=== PATIENT | female | born 1960 | race Caucasian/White ===

== ENCOUNTER 2023-11-07 10:58 | Emergency (ER) | payer OTHER, SELFPAY ==
[2023-11-07 11:02] VITALS: BP 139/84; BMI 37.1
--- NOTE | 2023-11-07 12:41 | ED.GENMED ---
History of Present Illness
General
Chief Complaint: Swelling
Time Seen by Provider: 11/07/23 11:52
Travel History
Have you had any contact with someone who has COVID-19?: No
Do you have any symptoms of coronavirus? Fever > 100 degrees, chills, cough, shortness of breath, sore throat, loss of taste or smell, muscle aches, or headache?: No
History of Present Illness
History of Present Illness:
63-year-old female presents to the emergency department for evaluation of left popliteal and upper calf pain beginning yesterday and worsening today. She was concerned that her left calf looks swollen. Pain is worse when ambulating, no pain at
rest. No recent prolonged immobilization or travel. Denies any fevers. Denies any chest pain or shortness of breath
Past History
Past History
ED Past Medical History: HTN and NIDDM
ED Past Surgical History: None
Patient has exhibited threatening behavior?: No
PSI?: No
Social History
Tobacco: Non-smoker
Alcohol: None
Drug: None
Personal:
Living: with family
Review of Systems
Review of Systems
Allergies reviewed?: Yes
All Other Systems: ROS reviewed and negative except as documented in HPI and ROS
Phy Exam
Physical Exam
Physical Exam:
GEN: Well appearing, NAD, WDWN
HEENT: Oral mucosa moist, no scleral icterus
Cardiac: Regular rate
Lung: No respiratory distress, no tachypnea
MSK: No gross deformity or injuries. No reproduced tenderness to the L knee. No gross deformity, normal L knee ROM. No crepitus. Calf mildly edematous proximally
Skin: Good color, no pallor or jaundice, no rashes
Neuro: AO x3, moves all extremities freely
Psych: Calm, cooperative
Scores
Heart Failure Risk
Heart Failure Risk Score: Not Applicable
Course
Orders/Labs/Results
Orders:
Orders
11/07/23 11:00
Periph Venous Lwr Ext Left US [US Periph Venous LOWER Ext LT] Urgent
Comment:
Reason For Exam: pain/swelling
11/07/23 12:40
CR Knee - Left 4 Or More View* Urgent
Comment:
Reason For Exam: knee pain
Vital Signs
Initial and Last Documented VS:
Initial Vital Signs
Temp Pulse Resp BP Pulse Ox
98 F 97 20 139/84 99
11/07/23 11:02 11/07/23 11:02 11/07/23 11:02 11/07/23 11:02 11/07/23 11:02
Last Documented Vital Signs
Temp Pulse Resp BP Pulse Ox
98 F 97 20 139/84 99
11/07/23 11:02 11/07/23 11:02 11/07/23 11:02 11/07/23 11:02 11/07/23 11:02
MDM/Problems Addressed
MDM/Problems Addressed:
Devious the study is not clearly positive for DVT however given the abnormality in the deep femoral vein will have the patient take full dose aspirin for 2 weeks and follow-up w/ PCP for reimaging.
*Critical Care Note
Total Time (30-74mins, 75-104mins- exclusive of procedures): Not Applicable
ED Attending Note
-
Portions of this chart may have been created with voice recognition software.� Occasional wrong word or��sound alike� substitutions may have occurred due to the inherent limitations of voice recognition software.
Discharge Plan
Departure
Patient Disposition: Home (Routine Discharge)
Date of Disposition: 11/07/23
Time of Disposition: 14:25
Patient with high blood pressure during this ER visit?: No
Discharge Problem:
Popliteal pain
Instructions: Osteoarthritis (DC)
Prescriptions:
No Action
ondansetron 4 mg tablet,disintegrating
4 mg PO Q8H PRN (Reason: nausea and vomiting) Qty: 10 0RF
acetaminophen [Tylenol] 325 mg Tablet
650 mg PO Q4H PRN (Reason: neck pain)
atorvastatin 10 mg Tablet
10 mg PO DAILY
aspirin 81 mg Tablet,Delayed Release (Dr/Ec)
81 mg PO DAILY
tramadol 50 mg Tablet
50 mg PO TID PRN (Reason: neck pain)
trazodone 150 mg Tablet
150 mg PO HS
glimepiride 4 mg Tablet
4 mg PO DAILY
valsartan 320 mg Tablet
320 mg PO DAILY
ibuprofen 600 mg Tablet
600 mg PO Q6H PRN (Reason: neck pain)
prednisone 10 mg Tablet
See Rx Instructions .ROUTE .COMPLEX Qty: 60 0RF
Rx Instructions:
50 mg daily x9 days, 40 mg daily x1 day, 30 mg daily x1 day, 20 mg daily x1 day, 10 mg daily x1 day
amlodipine 2.5 mg Tablet
5 mg PO DAILY Qty: 60 0RF
gabapentin 300 mg Capsule
600 mg PO TID Qty: 180 0RF
Referrals:
Nick Hough MD [Family Provider] -
Activity Restrictions/Additional Instructions:
I suspect your pain is due to knee arthritis and not due to a DVT however the ultrasound shows a vague abnormality in the femoral vein of your thigh. I recommended you start on full dose aspirin once daily and follow-up with your primary care
physician for repeat ultrasound within the next 2 to 3 weeks to reassess this.
Interventions
Interventions:
*Risk Screen - Suicide Last Done: 11/07/23 11:02
*General Assessment Last Done: 11/07/23 11:24
*Neglect/Abuse Screening Last Done: 11/07/23 11:02
ED- Fall Risk Assessment Last Done: 11/07/23 11:02
*ED COVID-19 Vaccine History Last Done: 11/07/23 11:02
*Nursing Disposition Last Done: 11/07/23 14:33
ED- Cardiac Assessment Last Done: 11/07/23 11:30
ED- Pulmonary Assessment Last Done: 11/07/23 11:26
ED-Skin Assessment Last Done: 11/07/23 11:26
Discharge Date and Time
Discharge Date/Time: 11/07/23 14:36
Print Language: [place]
== END 2023-11-07 14:36 | disposition home or self-care (01) ==
LOC: EMR 10:58
PROVIDERS: EMERGENCY PHYSICIAN Student in an Organized Health Care Education/Training Program; FAMILY PHYSICIAN Family Medicine
DX: M25.562 Pain in left knee (principal)
CPT/HCPCS: 99284; 73564; 93971

== ENCOUNTER → 2024-01-08 07:05 | Outpatient (REF) | payer OTHER, SELFPAY ==
[2024-01-08 07:40] LABS: % Basophils 0.3 % (0-2); % Eosinophils 2.5 % (0-6); % Immature Granulocytes 0.2 % (0-0.5); % Lymphocytes 29.5 % (20.5-51.1); % Monocytes 7.2 % (1.7-9.3); % Neutrophils 60.3 % (42.2-75.2); Absolute Eosinophils 0.2 10^3/uL (0-0.7); Absolute Lymphocytes 2.7 10^3/uL (1.2-3.4); Absolute Monocytes 0.7 10^3/uL (0.1-0.6); Absolute Neutrophils 5.5 10^3/uL (1.4-6.5); Mean Corp Hgb Conc. 32.6 g/dL (33.0-37.0); Mean Corpuscular Hgb 29.8 pg (27.0-31.0); Mean Corpuscular Volume 91.5 fL (81.0-99.0); Mean Platelet Volume 9.9 fL (7.4-10.4); Nucleated Red Blood Cells % 0 %; Platelet Count 229 10^3/uL (130-400); Red Cell Dist. Width 12.2 % (11.5-14.5); White Blood Cell Count 9.2 10^3/uL (4.8-10.8)
[2024-01-08 08:09] LABS: Blood Urea Nitrogen 14 mg/dl (7-17); Calcium 9.4 mg/dl (8.4-10.2); Carbon Dioxide 27 mmol/L (22-30); Chloride 105 mmol/L (98-107); Glucose 128 mg/dl (70-99); Potassium 4.3 mmol/L (3.5-5.1); Sodium 141 mmol/L (135-145); eGFR > 60.00
== END ==
LOC: RCS 07:05
PROVIDERS: ATTENDING PHYSICIAN Orthopaedic Surgery; FAMILY PHYSICIAN Family Medicine
DX: Z01.818 Encounter for other preprocedural examination (principal)
CPT/HCPCS: 36415; 80048; 85025; 93005

== ENCOUNTER → 2024-04-28 15:37 | Outpatient (REF) | payer OTHER, SELFPAY | LOC: WDC 15:37 | PROVIDERS: ATTENDING PHYSICIAN Family Medicine | DX: Z12.31 Encounter for screening mammogram for malignant neoplasm of breast (principal) | CPT/HCPCS: 77063; 77067 ==

== ENCOUNTER → 2025-04-30 16:38 | Outpatient (REF) | payer OTHER, SELFPAY | LOC: WDC 16:38 | PROVIDERS: ATTENDING PHYSICIAN Obstetrics & Gynecology Gynecology; FAMILY PHYSICIAN Family Medicine | DX: Z12.31 Encounter for screening mammogram for malignant neoplasm of breast (principal) | CPT/HCPCS: 77063; 77067 ==